=== PATIENT | male | born 1975 | race American Indian/Alaskan Native ===

== ENCOUNTER 2019-03-20 13:47 | Emergency (ER) | payer OTHER ==
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
[2019-03-20 15:32] VITALS: BP 144/95
== END 2019-03-20 15:27 | disposition home or self-care (01) ==
LOC: ED 13:47
DX: M25.512 Pain in left shoulder (principal); Z79.899 Other long term (current) drug therapy; V49.9XXA Car occupant (driver) (passenger) injured in unspecified traffic accident, initial encounter; Y93.89 Activity, other specified; Y92.488 Other paved roadways as the place of occurrence of the external cause; Y99.8 Other external cause status
CPT/HCPCS: 99283